=== PATIENT | male | born 1990 | race African-American/Black ===

== ENCOUNTER 2019-06-19 08:41 | Emergency (ER) | payer OTHER ==
[~2019-06-19] VITALS: Ht 162.6 cm; Wt 97.5 kg
[2019-06-19 08:44] VITALS: BP 137/87; TEMP 98.8
== END 2019-06-19 09:45 | disposition home or self-care (01) ==
LOC: ED 08:41
DX: J06.9 Acute upper respiratory infection, unspecified (principal)
CPT/HCPCS: 87502; 87651; 99283